=== PATIENT | female | born 1975 | race Caucasian/White ===

== ENCOUNTER 2024-10-03 13:15 | Emergency (ER) | payer OTHER, SELFPAY ==
[2024-10-03 13:25] VITALS: BP 116/75; PULSE 71; RESP 16; TEMP 36.1; O2SAT 100
--- NOTE | 2024-10-03 13:39 | ED_ITS ---
HPI - URI/Sore Throat General Chief Complaint: Upper Respiratory Infection Stated Complaint: sinus infection Time Seen by Provider: 10/03/24 13:39 Source: patient, RN notes reviewed and old records reviewed Mode of arrival: ambulatory Limitations: no limitations History of Present Illness HPI Narrative: patient presents with complaints of nasal congestion and postnasal drainage for 4-5 days. She reports she feels as though her symptoms are getting worse. Cough sometimes becomes a problem secondary to postnasal drip. She has been taking [id number] medications with minimal relief. She denies any fever, chills, sweats. She voices no other concerns or complaints at this time Related Data Allergies Allergy/AdvReac Type Severity Reaction Status Date / Time No Known Allergies Allergy Verified 10/03/24 13:21 Review of Systems Review of Systems: All systems reviewed & are unremarkable except as noted in HPI and below Constitutional: Constitutional: Reports no additional constitutional complaints ENT: Reports system reviewed and no additional complaints, except as documented, Reports nasal congestion and Reports nasal discharge Cardiovascular: Cardiovascular: Reports no additional cardiovascular complaints Respiratory: Respiratory: Reports no additional respiratory complaints and Reports cough Gastrointestinal: Gastrointestinal: Reports no additional gastrointestinal complaints PMFSH Comments At the time of my signature, I reviewed and agree with the nursing past medical, surgical, social, and family history. There is no relevant family history pertinent to the patient complaint. Exam Const: General: cooperative, no acute distress, alert and awake Orientation/consciousness: oriented to person, oriented to place and oriented to time HENMT: Head: normal to inspection Ears: TM's normal bilaterally Mouth: Yes moist mucous membranes Resp: Effort & Inspection: normal respiratory effort and able to speak in complete sentences Auscultation: clear to auscultation bilaterally, no crackles, no rales, no rhonchi and no wheezes Cardio: Palpation: normal PMI Rate: regular rate Rhythm: regular rhythm Heart sounds: S1 normal heart sound present and S2 normal heart sound present Neuro: General: oriented to person, oriented to place and oriented to time Cranial nerves: Yes CN's II-XII intact bilaterally Psych: Appearance: grossly normal Thought process: Normal thought process present Insight: Good insight present (Psych) Judgement: Good judgement present (Psych) Course Course Level of Care: Express Care Visit Vital Signs Vital signs: Vital Signs Temperature 97.0 F L 01/02/25 13:25 Pulse Rate 71 10/03/24 13:25 Respiratory Rate 16 10/03/24 13:25 Blood Pressure 116/75 10/03/24 13:25 Pulse Oximetry 100 10/03/24 13:25 Oxygen Delivery Room Air 10/03/24 13:25 Temperature 97.0 F L 10/03/24 13:25 Pulse Rate 71 10/03/24 13:25 Respiratory Rate 16 10/03/24 13:25 Blood Pressure 116/75 10/03/24 13:25 Pulse Oximetry 100 10/03/24 13:25 Oxygen Delivery Room Air 10/03/24 13:25 Reviewed MDM - URI/Sore Throat MDM Narrative Medical decision making narrative: patient with reassuring physical exam. No distress. Treat symptomatically. Symptoms likely viral in origin. Discharge instructions reviewed with patient, as well as provided in writing per nursing staff. The instructions also include specific and strict return/GO TO THE ER as well as f/u information. All questions have been answered, and the patient deny any further questions with discharge and discharge plan. Some parts of this dictation were generated by voice recognition software and may contain typographical and/or grammatical inaccuracies. Differential Diagnosis Differential diagnosis: Likely upper respiratory infection, otitis media, viral infection and bronchitis Medical Records Attestation: I reviewed the patient's medical records. Discharge Plan Discharge Clinical Impression: Upper respiratory infection Qualifiers: URI type: unspecified viral URI Qualified Code(s): J06.9 - Acute upper respiratory infection, unspecified Patient Disposition: Home, Self-Care Condition: Stable Instructions: Antibiotic Form, Cold Symptoms (ED) Additional Instructions: Take medications as prescribed. Follow with primary care provider. Emergency department for new or worse symptoms Patient Language: Maltese Prescriptions: New prednisone 50 mg tablet 50 mg PO DAILY Qty: 5 0RF Follow-up/Referrals: Lio,Christos Parikh MD [Primary Care Provider] - 2 Weeks Time of Disposition: 13:51
--- OUTSIDE RECORDS SUMMARY | 2024-10-11 00:18 | XMS_ITS | Encounter Summary ---
Author Organization [facility] Healthcare Address [address] [place] [id number] Care Team Providers [employer] Lawyer Name Role Phone No, Physician Primary Care Provider [phone] Reason for Referral * Diagnostic Imaging (Routine) - Closed Specialty Diagnoses / Procedures Referred By David cosme Referred To Contact Diagnoses Encounter for screening mammogram for malignant neoplasm of breast Procedures Screening Mammogram Bilateral W Nestor Screening Mammogram, Self [id number] [place] [address] Referral ID Status Reason Start Date Expiration Date Visits Re quested Visits Authorized [id number] Closed 09/30/2019 04/10/2021 1 1 [employer] CONSULTANT Reason for Visit * Diagnostic Imaging (Routine) - Closed Specialty Diagnoses / Procedures Referred By David cosme Referred To Contact Diagnoses Encounter for screening mammogram for malignant neoplasm of breast Procedures Screening Mammogram Bilateral W Nestor Screening Mammogram, Self [address] [address] Referral ID Status Reason Start Date Expiration Date Visits Re quested Visits Authorized [id number] Closed 09/30/2019 04/10/2021 1 1 Encounter Details Date Type Department Care Team (Latest Contact Info) Description 11/05/2019 3:07 PM [employer] CONSULTANT - 11/05/2019 11:59 PM [employer] CONSULTANT Hospital Encounter [facility] - Imaging [address] [place] [address] Screening Mammogram, Self Encounter for screening mammogram for malignant neoplasm of breast Discharge Disposition: Discharge to home or self care Social History Tobacco Use Types Packs/Day Years Used Date Smoking Tobacco: Never Assessed Comments Unknown Sex and Gender Information Value Date Recorded Sex Assigned at Not on file Legal Sex Female 11:15 AM [employer] CONSULTANT Gender Identity Female 08/23/2024 10:13 AM [employer] CONSULTANT Sexual Orientation Not on file documented as of this encounter Medications at Time of Discharge mesalamine (APRISO) 0.375 gram 24 hr capsuleIndicatio ns:Crohn's Disease Take 4 capsules (1.5 g total) by mouth daily. 120 capsule 6 01/11/2018 11/27/2023 documented as of this encounter Discharge Disposition Disposition Code Departure Means Destination Discharge to home or self care documented in this encounter Plan of Treatment Not on file documented as of this encounter Procedures Procedure Name Priority Date/Time Associated Diagnosis Comments SCREENING MAMMOGRAM BILATERAL W NESTOR Schedule Routine, Read Routine (OP Routine) 11/05/2019 3:30 PM [employer] CONSULTANT Encounter for screening mammogram for malignant neoplasm of breast documented in this encounter Results * Screening Mammogram Bilateral W Nestor (11/05/2019 3:30 PM [employer] CONSULTANT) Anatomical Region Laterality Modality Breast Bilateral Mammography Narrative 11/06/2019 2:53 PM [employer] CONSULTANT Screening Mammogram Bilateral W Nestor: 11/05/19 Clinical: Encounter for screening mammogram for malignant neoplasm of breast. Prior Study Comparisons: Comparison was made to the prior available relevant studies at the time of interpretation. Findings: Bilateral No significant masses, malignant type calcifications, skin thickening, nipple retraction, or significant lymphadenopathy is noted in either breast. ??The CAD review showed no significant findings. The breasts are heterogeneously dense, which may obscure small masses. The patient will be notified of results by letter. Impression: BI-RADS?? ATLAS category (overall): 2 Benign ?? There is no mammographic evidence of malignancy. Routine Screening Mammogram in 1 Yr is recommended for bilateral Overall Assessment: 2 - Benign us Self Screening Mammogram IMG MAMMO PROCEDURES Fi nal Result documented in this encounter Visit Diagnoses Diagnosis Encounter for screening mammogram for malignant neoplasm of breast documented in this encounter [employer] Lawyer Relationship Specialty Start Date End Date No, Physician PCP - General 03/01/17 01/18/21 documented as of this encounter
== END 2024-10-03 13:52 | disposition home or self-care (01) ==
PROVIDERS: Emergency Provider Nurse Practitioner Family; PCP Family Medicine Sports Medicine
DX: J06.9 Acute upper respiratory infection, unspecified (principal); Z86.16 Personal history of COVID-19
CPT/HCPCS: 99203; G0463